=== PATIENT | male | born 1960 | race Caucasian/White ===

== ENCOUNTER 2016-10-12 12:51 | Emergency (ER) | payer BC ==
[~2016-10-12] VITALS: Ht 167.6 cm; Wt 110.5 kg
[~2016-10-12 12:51] MED LIST: AFRIN,GENASAL D15 ML BOTH NARES; ASCORBIC ACID500 M3 PO; ASPIR 8181 M1 PO; ASPIRIN325 MG PO; AUGMENTIN875 MG PO; BYSTOLIC10 MG PO; BYSTOLIC20 MG PO; BYSTOLIC5 MG PO; C COMPLEX500 MG PO; CATAPRES0.1 MG PO; CELEBREX200 MG PO; CENTRUM MEN'S1 EACH PO; COZAAR50 MG PO; FISH OIL SOFTG1 EACH PO; FUROSEMIDE40 MG PO; KLOR-CON 1010 ME1 PO; LASIX40 MG PO; LIPITOR40 MG PO; LOSARTAN POTASS50 MG PO; LOSARTAN-HCTZ1 EACH PO; MICRO-K10 ME1 PO; MICRO-K10 ME2 PO; MOTRIN IB200 MG PO; OMEPRAZOLE40 M1 PO; ONE DAILY FOR1 EAC2 PO; PRILOSEC20 MG PO; [UNRECOGNIZED DRUG - REMARK]
[2016-10-12 13:50] LABS: HEMATOCRIT 47.8 % (38.0-50.0); MCHC 34.7 G/DL (30.0-36.0); MCV 92.1 FL (86-99); MEAN PLAT.VOLUME 11.8 uM^3 (9.0-12.4); PLATELET COUNT 181 K/uL (156-360); RBC DIS.WIDTH-CV 12.8 % (11.8-14.6); RED BLOOD COUNT 5.19 M/uL (4.00-5.50); WHITE BLOOD COUNT 7.6 K/uL (4.1-10.2)
[2016-10-12] MEDS ORDERED: TRIBENZOR 40-51 EAC5 PO (14:04)
[2016-10-12] MEDS ORDERED: KLOR-CON 1010 ME1 PO (14:04)
[2016-10-12 14:07] LABS: CHLORIDE 104 mEq/L (99-109); POTASSIUM 4.1 mEq/L (3.7-5.4); SODIUM 140 mEq/L (136-147)
[2016-10-12 14:09] LABS: GLUCOSE 193 mg/dL (70-99)
[2016-10-12 14:10] LABS: ANION GAP 12 MEQ/L (2-14)
[2016-10-12 14:12] LABS: ADD MIUA? YES; BILIRUBIN NEGATIVE; BLOOD LARGE; COLOR YELLOW ((YELLOW)); GLUCOSE (STRIP) NEGATIVE; KETONES NEGATIVE; LEUKOCYTES NEGATIVE; NITRITE NEGATIVE; PROTEIN (STRIP) NEGATIVE; UROBILINOGEN 0.2 MG/DL (0.2-1.0)
[2016-10-12 14:12] LABS: ALKALINE PHOSPHATASE 56 IU/L (3-129)
[2016-10-12 14:13] LABS: GFR ESTIMATE (CALCULATED) 48 mL/min/
[2016-10-12 14:14] LABS: UREA NITROGEN (BUN) 30 mg/dL (9-23)
[2016-10-12 14:34] LABS: BACTERIA NONE SEEN /HPF; EPITHELIAL CELLS RARE /HPF; HYALINE CASTS 0-5 /LPF; MUCUS TRACE /LPF; RED BLOOD CELLS TNTC /HPF (0-5); UCUL ADDED? NO; WHITE BLOOD CELLS NONE SEEN /HPF (0-5)
[2016-10-12] MEDS ORDERED: NAPROSYN500 MG PO (15:20)
[2016-10-12] MEDS ORDERED: LORTAB 5-325 M1 EACH PO (15:20)
[2016-10-12] MEDS ORDERED: FLOMAX0.4 MG PO (15:20)
[2016-10-12] MEDS ORDERED: ZOFRAN ODT4 MG PO (15:20)
[2016-10-12 15:32] VITALS: BP 122/63
== END 2016-10-12 15:32 | disposition home or self-care (01) ==
LOC: EME 12:51
PROVIDERS: Nurse Practitioner Family
DX: N13.2 Hydronephrosis with renal and ureteral calculous obstruction (principal); I10 Essential (primary) hypertension; E78.5 Hyperlipidemia, unspecified; K21.9 Gastro-esophageal reflux disease without esophagitis; Z91.041 Radiographic dye allergy status
CPT/HCPCS: 74176; 80053; 81003; 85027; 99281; 99284; J1885

== ENCOUNTER → 2016-11-17 | Outpatient (CLI) | payer BC ==
[~2016-11-17] MED LIST changes: +FLOMAX0.4 MG PO; +LORTAB 5-325 M1 EACH PO; +NAPROSYN500 MG PO; +TRIBENZOR 40-51 EAC5 PO; +ZOFRAN ODT4 MG PO
== END | disposition home or self-care (01) ==
LOC: CDC 15:05
DX: R94.31 Abnormal electrocardiogram [ECG] [EKG] (principal)
CPT/HCPCS: 93000